=== PATIENT | male | born 2000 | race African-American/Black ===

== ENCOUNTER 2022-01-12 17:35 | Emergency (ER) | payer MEDICAID ==
[~2022-01-12] VITALS: Ht 170.2 cm; Wt 54.9 kg
[2022-01-12] MEDS ORDERED: TETANUS-DIPTH-ACEL PERTUSSIS 0.5ML SYR Tdap IM ONE (23:30)
[2022-01-12 23:35] VITALS: BP 130/72
[2022-01-12] MEDS ORDERED: AMOX500T86 PO (23:39)
[2022-01-12] MEDS ORDERED: IBUP800T27 PO (23:39)
== END 2022-01-12 23:45 | disposition home or self-care (01) ==
LOC: ER 17:35
DX: S61.215A Laceration without foreign body of left ring finger without damage to nail, initial encounter (principal); S61.217A Laceration without foreign body of left little finger without damage to nail, initial encounter; S71.111A Laceration without foreign body, right thigh, initial encounter; W54.0XXA Bitten by dog, initial encounter; Y93.89 Activity, other specified; Y92.89 Other specified places as the place of occurrence of the external cause; Y99.8 Other external cause status
CPT/HCPCS: 12002; 90471; 90715

== ENCOUNTER 2022-01-14 16:06 | Emergency (ER) | payer MEDICAID ==
[~2022-01-14] VITALS: Ht 167.6 cm; Wt 54.0 kg
[~2022-01-14 16:06] MED LIST: AMOX500T86 PO; IBUP800T27 PO
[2022-01-14 16:23] VITALS: BP 127/76
== END 2022-01-14 19:04 | disposition left against medical advice (07) ==
LOC: ER 16:10
DX: S61.412D Laceration without foreign body of left hand, subsequent encounter (principal); S81.011D Laceration without foreign body, right knee, subsequent encounter; Z53.21 Procedure and treatment not carried out due to patient leaving prior to being seen by health care provider; X58.XXXD Exposure to other specified factors, subsequent encounter

== ENCOUNTER 2022-09-06 18:00 | Emergency (ER) | payer MEDICAID ==
[~2022-09-06] VITALS: Ht 167.6 cm; Wt 56.8 kg
[~2022-09-06 18:00] MED LIST changes: +IBUP-1456 PO; -IBUP800T27 PO
[2022-09-06] MEDS ORDERED: AZITHROMYCIN 250 MG TAB PO ONE (18:30)
[2022-09-06] MEDS ORDERED: cefTRIAXone SOD 1,000 MG VL IM ONE (18:30)
[2022-09-06 19:51] VITALS: BP 110/80
[2022-09-06 20:56] LABS: Urine Bacteria NONE SEEN /hpf (None Seen); Urine Blood Negative /uL (Negative); Urine Mucus FEW (None Seen); Urine Specific Gravity 1.013 (1.001-1.035); Urine WBC 7 /hpf (0 - 3)
[2022-09-06] MEDS ORDERED: MUPI2OIN2 EX (21:48)
[2022-09-06] MEDS ORDERED: CLIN300C70 PO (21:48)
[2022-09-06] MEDS ORDERED: DOXY-286 PO (21:48)
== END 2022-09-06 22:08 | disposition home or self-care (01) ==
LOC: ER 18:00
DX: L02.214 Cutaneous abscess of groin (principal); A64 Unspecified sexually transmitted disease; J45.909 Unspecified asthma, uncomplicated; F17.210 Nicotine dependence, cigarettes, uncomplicated; Z79.899 Other long term (current) drug therapy
CPT/HCPCS: 81001; 87491; 87591; 96372; 99283; J0696